=== PATIENT | female | born 1975 | race African-American/Black ===

== ENCOUNTER 2016-07-25 22:42 | Emergency (ER) | payer OTHER ==
[~2016-07-25] VITALS: Ht 162.6 cm; Wt 104.3 kg
--- NOTE | 2016-07-25 23:55 | NUR ---
PATIENT AMBULATED TO ER BED 7.
--- NOTE | 2016-07-26 00:04 | NUR ---
PT PRESENT TO ER C/O LEFT FOOT AND ANKLE PAIN FOR 3 WEEKS, S/P FALL , AND 2 WEEKS AGO SHE HURT RT PINKY TOE
--- NOTE | 2016-07-26 00:40 | NUR ---
Patient being evaluated by BY DR. SINGH at bedside.
--- NOTE | 2016-07-26 00:45 | NUR ---
PATIENT BEING EVALUATED BY DR. SINGH.
--- NOTE | 2016-07-26 01:10 | NUR ---
Patient discharged with v/s stable. Written and verbal after care instructions given and explained. Patient alert, oriented and verbalized understanding of instructions. Ambulatory with steady gait. All questions addressed prior to discharge. ID band removed. Patient advised to follow up with PMD. Rx of TRAMADOL HYDROCHLORIDE 50MG PO given. Patient educated on indication of medication including possible reaction and side effects. Opportunity to ask questions provided and answered.
[2016-07-26 01:12] VITALS: BP 118/76
== END 2016-07-26 01:10 | disposition home or self-care (01) ==
LOC: MED 22:42
DX: S90.32XA Contusion of left foot, initial encounter (principal); Z88.2 Allergy status to sulfonamides; W10.9XXA Fall (on) (from) unspecified stairs and steps, initial encounter; Y93.89 Activity, other specified; Y92.89 Other specified places as the place of occurrence of the external cause; Y99.8 Other external cause status